=== PATIENT | female | born 1995 | race Caucasian/White ===

== ENCOUNTER → 2017-01-22 | Outpatient (CLI) | payer OTHER ==
[~2017-01-22] MED LIST: BIRTH CONTROL; IBU600 MG PO; MICRONASE2.5 MG PO; NORCO 325 MG-51 TAB PO; PERCOCET 325 MG1 TA2 PO; PRENATAL1 TA7 PO
== END ==
LOC: SUN.DIA 08:35
DX: O24.419 Gestational diabetes mellitus in pregnancy, unspecified control (principal); Z3A.31 31 weeks gestation of pregnancy; O99.333 Smoking (tobacco) complicating pregnancy, third trimester; F17.210 Nicotine dependence, cigarettes, uncomplicated; Z71.3 Dietary counseling and surveillance
CPT/HCPCS: G0108

== ENCOUNTER → 2017-01-24 | Outpatient (CLI) | payer OTHER | LOC: SUN.DIA 08:42 | DX: O24.419 Gestational diabetes mellitus in pregnancy, unspecified control (principal); Z3A.31 31 weeks gestation of pregnancy; O99.333 Smoking (tobacco) complicating pregnancy, third trimester; F17.210 Nicotine dependence, cigarettes, uncomplicated | CPT/HCPCS: G0108 ==

== ENCOUNTER 2017-02-12 05:41 | Inpatient (IN) | payer OTHER ==
[~2017-02-12] VITALS: Ht 167.7 cm; Wt 91.8 kg
[~2017-02-12 05:41] MED LIST changes: -IBU600 MG PO; -MICRONASE2.5 MG PO; -PERCOCET 325 MG1 TA2 PO; -PRENATAL1 TA7 PO
[2017-04-05] VITALS (53 sets, daily range): BP systolic 91–163; BP diastolic 49–88; PULSE 67–106; TEMP 97.8–99.7
[2017-04-05] MEDS ORDERED: PRENATAL1 TA7 PO (07:33)
[2017-04-05] MEDS ORDERED: MICRONASE2.5 MG PO (07:33)
[2017-04-05 08:23] LABS: MEAN CELL VOLUME 90 fl (80.0-100.0); MEAN CORPUSCULAR HGB CONC 33 g/dl (33.0-37.0); MEAN PLATELET VOLUME 10.7 fl (7.4-10.4); PLATELET COUNT 224 K/mm3 (130-400); RED BLOOD COUNT 3.96 M/mm3 (4.10-5.30); REDCELL DISTRIBUTION WIDTH-CV 13.8 % (11.5-14.5); WHITE BLOOD COUNT 16.9 K/mm3 (4.8-10.8)
[2017-04-05 08:26] LABS: ADD PATHOLOGY DIFF REVIEW NO; HEMATOCRIT 35.8 % (37.0-47.0); HEMOGLOBIN 11.9 g/dl (12.5-16.0); MEAN CORPUSCULAR HEMOGLOBIN 30 pg (27.0-31.0)
[2017-04-05 09:29] LABS: BAND 23 % (0-10); METAMYELOCYTE 1 % (0-0); MYELOCYTE 1 % (0-0); NEUTROPHILS 55 % (42.0-75.2); PLATELET ESTIMATE NORMAL (NORMAL); TOTAL CELLS COUNTED 100
[2017-04-06 02:15] VITALS: BP 129/67; PULSE 81; TEMP 98.2
[2017-04-06 07:15] VITALS: BP 125/70; PULSE 84
[2017-04-06 07:59] LABS: BASO # 0.1 (0.0-0.2); BASO % 0.3 % (0.0-2.0); EOS # 0.1 (0.0-0.7); EOS % 0.5 % (0-4.0); GRAN # 16.3 (1.4-6.5); GRAN % 81.6 % (42.2-75.2); LYMPH # 2.2 (1.2-3.4); MEAN CELL VOLUME 90 fl (80.0-100.0); MEAN CORPUSCULAR HGB CONC 33 g/dl (33.0-37.0); MEAN PLATELET VOLUME 10.3 fl (7.4-10.4); MONO # 1.1 (0.1-0.6); MONO % 5.3 % (1.7-9.3); PLATELET COUNT 177 K/mm3 (130-400); RED BLOOD COUNT 3.54 M/mm3 (4.10-5.30); REDCELL DISTRIBUTION WIDTH-CV 13.7 % (11.5-14.5)
[2017-04-06 08:01] LABS: HEMATOCRIT 31.8 % (37.0-47.0); HEMOGLOBIN 10.6 g/dl (12.5-16.0); MEAN CORPUSCULAR HEMOGLOBIN 30 pg (27.0-31.0); WHITE BLOOD COUNT 19.9 K/mm3 (4.8-10.8)
[2017-04-06] MEDS ORDERED: PERCOCET 325 MG1 TA2 PO (12:07)
[2017-04-06] MEDS ORDERED: IBU600 MG PO (12:07)
[2017-04-06 16:00] VITALS: BP 130/76; PULSE 70
[2017-04-06 19:15] VITALS: BP 135/76; PULSE 85; TEMP 99.1
[2017-04-07 07:16] VITALS: BP 127/66; PULSE 91; TEMP 98.4
[2017-04-07 16:15] VITALS: BP 121/62; PULSE 90; TEMP 98.6
[2017-04-07 21:23] VITALS: BP 128/79; PULSE 105; TEMP 98.9
[2017-04-08 08:30] VITALS: BP 144/75; PULSE 94; TEMP 98.3
[2017-04-08 16:10] VITALS: BP 139/67; PULSE 83; TEMP 98.4
== END 2017-04-08 18:00 | disposition home or self-care (01) | DRG 765 ==
LOC: LDRO 04-01 05:38 → EDSTATUS 04-01 11:09 → LDR 04-05 07:11 → OB 04-05 07:11 → LDR 04-05 11:12 → OB 04-05 19:30
PROVIDERS: Obstetrics & Gynecology
PROC: 10D00Z1 Extraction of Products of Conception, Low, Open Approach (ICD-10-PCS; principal; 2017-04-08)
DX: O48.0 Post-term pregnancy (principal); O99.02 Anemia complicating childbirth; D62 Acute posthemorrhagic anemia; O77.0 Labor and delivery complicated by meconium in amniotic fluid; O69.81X0 Labor and delivery complicated by cord around neck, without compression, not applicable or unspecified; O76 Abnormality in fetal heart rate and rhythm complicating labor and delivery; O99.334 Smoking (tobacco) complicating childbirth; F17.210 Nicotine dependence, cigarettes, uncomplicated; O24.420 Gestational diabetes mellitus in childbirth, diet controlled; Z3A.40 40 weeks gestation of pregnancy; Z37.0 Single live birth
CPT/HCPCS: J0690; J1885; J2175; J2270; J2370; J2400; J2405; J2590; J2795; J7120

== ENCOUNTER → 2018-01-27 | Outpatient (CLI) | payer OTHER ==
[~2018-01-27] MED LIST changes: +IBU600 MG PO; +MICRONASE2.5 MG PO; +PERCOCET 325 MG1 TA2 PO; +PRENATAL1 TA7 PO
== END ==
LOC: ZCOL.LAB 15:44
DX: Z01.812 Encounter for preprocedural laboratory examination (principal); Z86.14 Personal history of Methicillin resistant Staphylococcus aureus infection